=== PATIENT | male | born 1935 | race Caucasian/White ===

== ENCOUNTER 2016-09-19 20:04 | Emergency (ER) | payer MEDICARE, OTHER ==
[~2016-09-19] VITALS: Ht 193 cm; Wt 122.7 kg
[2016-09-19 20:06] VITALS: BP 176/78; PULSE 67; RESP 16; O2SAT 97
--- NOTE | 2016-09-19 20:32 | ED.REPORT ---
HPI-Trauma Minor / Fall Date of Service Sep 19, 2016 ED Provider: Xenia Ross MD Patient is a 81 year old male who presents to the ED after falling off a ladder. He complains of neck, left hip and left lumbar pain. Patient denies losing consciousness, headache, chest pain, numbness or weakness. The patient states that he fell about 4 feet and landed onto his back. He fell onto the lawn. The patient states that the pain in his hip is exacerbated when he tries to move it but he was able to ambulate after the accident. Patient currently takes 81mg of ASA daily. Nursing Notes Stated Complaint: FELL OFF LADDER- 6FT Chief Complaint: Multiple Trauma/Fall Nursing Notes Reviewed: Yes Allergies: Coded Allergies: ibuprofen (Verified Allergy, Severe, Anaphylaxis, 09/19/16) Scheduled Aspirin (Aspirin) 81 Mg Tablet 81 MG PO DAILY Ranitidine (Ranitidine) 150 Mg Capsule 150 MG PO DAILY Tamsulosin (Flomax) 0.4 Mg Capsule 0.4 MG PO DAILY Verapamil ER (Verapamil ER) 120 Mg Cap24h.pel 120 MG PO DAILY Scheduled PRN Oxycodone HCl/Acetaminophen 5-325 (Endocet 5-325) 1 Each Tablet 1-2 TABLET PO Q6H PRN PRN For Pain General Time Seen by MD: 20:25 Chief Complaint Fall Hx Obtained From: Patient Arrived By: Walk-in Onset Occurred: 1 - 4 hours ago Symptom Duration: Since onset Caused by: Fall from height... (3-6 feet) Location: Back Hip left Neck Quality: Painful Severity: Current: Pain level 4 out of 10 Similar Sx Previous: No Past Medical History Smoking History Unknown if Ever Smoker Social History Other Social History: Good social support Ambulatory Status Independent Review of Systems Constitutional: Denies: Chills, Fever Respiratory: Denies: Non-productive cough, Shortness of breath Musculoskeletal: Reports: Back pain, Extremity pain (left hip), Neck pain Skin: Denies Itching, Denies Rash Neurologic: Denies: Change LOC, Headache, Numbness, Problem walking, Weakness Complete sys rev & neg: except as marked. Physical Exam Initial Vital Signs Vital Signs (First) Date Time Temp Pulse Resp B/P Pulse Ox O2 Delivery O2 Flow Rate FiO2 09/19/16 20:06 36.8 67 16 176/78 97 Room Air Initial VS: Reviewed, Vital signs abnormal General/Constitutional: Awake, Alert Neck: Atraumatic, Supple, Full range of motion left lateral tenderness no central tenderness Head / Eyes: Atraumatic, Normocephalic, PERRL, EOMI Respiratory / Chest: Atraumatic, Breath sounds NL, Breath sounds = bilat, No respiratory distress Cardiovascular: Heart rate NL, Regular rhythm, Heart sounds NL Back: Atraumatic, Non-tender Upper Extremity / MS: No deformity, Neurologic intact, Vascular intact right lateral elbow bruising Lower Extremity / Pelvis / MS: Neurologic intact, Vascular intact Lower Ext Brief Normals: Hip R exam normal Left Hip: Positive: ROM reduced..., Negative: Leg shortened Skin: Atraumatic, Color NL, No rash, Warm, Dry Neurologic: Oriented X3, Speech NL, No motor deficits, No sensory deficits Psychiatric: Affect NL, Mood NL Interpretation & Diagnostics X-Ray Chest Interpretation Chest Xray Interpretation: no acute findings View: Portable, 1 view Interpretation / Wet Read by: Wet read ED physician X-Ray Interpretation Xray Interpretation: no evidence of fracture X-Ray Ordered: Hip left Interpretation / Wet Read by: Wet read ED physician Interpretation: Normal exam Xray Interpretation: no acute fracture Study Performed: LUMBAR SPINE Interpretation / Wet Read by: Wet read ED physician CT Head Interpretation IMPRESSION: Arachnoid cyst anterior left temporal fossa measures 2.3 x 4.1 cm, and no acute trauma is found. Dictated by: Prabhu Shen M.D. on 09/19/2016 at 21:00 Approved by: Prabhu Shen M.D. on 09/19/2016 at 21:02 Interpretation / Wet Read by: Interpret - Radiologist CT C-Spine Interpretation IMPRESSION: There is moderate to moderately severe degenerative disc disease along the cervical spine, without acute trauma identified. No traumatic subluxation is suspected. Dictated by: Prabhu Shen M.D. on 09/19/2016 at 21:02 Approved by: Prabhu Shen M.D. on 09/19/2016 at 21:04 Interpretation / Wet Read by: Interpret - Radiologist Re-Eval/Medical Decision Med Decision/Clinical Course The patient had a significant fall onto grass without loss of consciousness and he is not on any anticoagulation. His predominant complaint was left hip and pelvic pain. On exam he is not having any central spinal tenderness or signs of trauma to his head or back. He has some tenderness around the left iliac crest and he does have some neck discomfort with flexion only. He is neurologically intact. No fractures were found and the patient is able to bear weight on his left hip therefore a CT was not necessary. There are no signs of intracranial pathology related to the fall. The patient does not have any other complaints or findings on exam that are concerning for an acute surgical process. Re-Evaluation/Progress : Time of Eval: 23:00 Re-Evaluation/Progress Note: Discussed all results and plan for discharge. Patient understands and agrees to plan. All questions were addressed. Counseled Regarding: Diagnosis, Lab results, Need for follow-up, When/why to return to ED Discharge & Departure Impression: Primary Impression: Fall Encounter type: initial encounter Qualified Code: W19.XXXA - Unspecified fall, initial encounter Additional Impressions: Neck strain Encounter type: initial encounter Qualified Code: S16.1XXA - Strain of muscle, fascia and tendon at neck level, initial encounter Hip pain Laterality: left Qualified Code: M25.552 - Pain in left hip Disposition: Home Discharge Condition All VS Reviewed: Yes Condition: Stable Patient Instructions: Hip Pain (ED) Additional Instructions: Your CT scans and X-ray were normal and reassuring. There was no evidence of any fractures. You can also try icing your neck and back for 30minutes, 3 times a day. Activity as tolerated by your pain. Take 1-2 Percocet every 6 hours as needed for severe pain. Do not combine with alcohol or drive while taking the medication. Do not combine with acetaminophen. Be sure to add extra fiber to your diet as narcotics can cause constipation. Take the pain medications with food. Follow up with your primary care physician next week. Return to the emergency department if you develop any new or concerning symptoms Referrals: [facility] [employer] Attestation Portions of this note were transcribed by Mariana Gibbs. I, Dr. Ross personally performed the history, physical exam and medical decision-making; I reviewed and confirmed the accuracy of the information in the transcribed note. Signed by: Yvonne Willett, 09/19/16 copies to: [facility] Xenia Ross MD Sep 19, 2016 20:32 Faith Gibbs Sep 19, 2016 20:40
[2016-09-19] MEDS ORDERED: VERA120C2 PO (20:48)
[2016-09-19] MEDS ORDERED: TAMS0.4C98 PO (20:49)
[2016-09-19] MEDS ORDERED: ASPI-973 PO (20:50)
[2016-09-19] MEDS ORDERED: ASPI81TA3 PO (20:50)
[2016-09-19] MEDS ORDERED: RANI150C4 PO (20:52)
--- NOTE | 2016-09-19 21:04 | DRSVH ---
PROCEDURE: CT BRAIN WITHOUT CONTRAST ([id number]) INDICATIONS: fell 6ft hit head; c/o head & neck pain TECHNIQUE: Noncontrast 4.5 mm thick angled axial sections acquired from the foramen magnum to the vertex, with c oronal reformats. COMPARISON: None. FINDINGS: Image quality: Excellent. Moderate brain parenchymal atrophy. CSF spaces: Basal cisterns are patent. There is an arachnoid cyst at the anterior left temporal lucy a measuring up to 2.3 x 4.1 cm, water density.. The ventricles are symmetric in size and shape. Brain: No intracranial bleeds or masses. There is cerebral volume loss for age, with resultant vent ricular and sulcal prominence. There are periventricular and deep white matter chronic small vessel ischemic changes. There is intracranial internal carotid artery atherosclerosis. There is moderate b rain parenchymal atrophy, expected for age. Skull and face: Calvarium and visualized facial bones appear intact, without suspicious lesions. Sinuses: Visualized sinuses and mastoids are clear. IMPRESSION: Arachnoid cyst anterior left temporal fossa measures 2.3 x 4.1 cm, and no acute trauma i s found. Dictated by: Prabhu Shen M.D. on 09/19/2016 at 21:00 Approved by: Prabhu Shen M.D. on 09/19/2016 at 21:02
--- NOTE | 2016-09-19 21:06 | DRSVH ---
PROCEDURE: CT CERVICAL SPINE WITHOUT CONTRAST ([id number]) INDICATIONS: fell 6ft hit head; c/o head&neck pain TECHNIQUE: Noncontrast 3 mm thick sections acquired from the skull base to the T4 level. Sagittal and coronal r eformats were then constructed. For radiation dose reduction, the following was used: automated exp osure control, adjustment of mA and/or kV according to patient size. COMPARISON: None. FINDINGS: Image quality: Excellent. Bones: No fractures or dislocations. Visualized superior ribs are intact. Moderate to moderately s evere degenerative disc disease along the middle and lower thirds of the cervical spine but no acute trauma found. Soft tissues: Prevertebral soft tissues are normal in thickness. No paravertebral hematomas. No ap ical pneumothoraces. IMPRESSION: There is moderate to moderately severe degenerative disc disease along the cervical spin e, without acute trauma identified. No traumatic subluxation is suspected. Dictated by: Prabhu Shen M.D. on 09/19/2016 at 21:02 Approved by: Prabhu Shen M.D. on 09/19/2016 at 21:04
[2016-09-19] MEDS ORDERED: oxyCODONE-Acetamin 5-325 mg Tablet PO ONE (21:30)
[2016-09-19 22:18] VITALS: BP 163/70; PULSE 91; RESP 15; O2SAT 95
[2016-09-19] MEDS ORDERED: _Ondansetron ODT 4 mg Tablet PO PRN (23:05)
[2016-09-19] MEDS ORDERED: _oxyCODONE/APAP 5-325 mg Tablet PO PRN (23:05)
[2016-09-19] MEDS ORDERED: OXYC-407 PO (23:07)
[2016-09-19 23:09] VITALS: BP 152/66; PULSE 68; RESP 15; O2SAT 94
[2016-09-19 23:40] VITALS: BP 152/66; PULSE 68; RESP 15; O2SAT 94
--- NOTE | 2016-09-20 09:19 | DRSVH ---
PROCEDURE: X-RAY CHEST, TWO VIEWS ([id number]) INDICATIONS: fall TECHNIQUE: 2 views of the chest were acquired. COMPARISON: None. FINDINGS: Surgical changes and devices: None. Lungs and pleura: No pleural effusions or pneumothorax. Lungs are clear. Mediastinum: Right paratracheal soft tissue prominence noted. Heart size is normal. Bones and chest wall: No suspicious bony abnormalities. Soft tissues appear unremarkable. IMPRESSION: 1. Right paratracheal soft tissue prominence noted which may be related to senescent changes. Recomm end obtaining comparison with prior imaging if available and if not followup chest x-ray in 3 months is recommended or alternatively chest CT could be performed. Dictated by: Shilo PASTRANA Interpreted: Madelin Brito MD on 09/20/2016 at 8:36 Approved by: Madelin Brito M.D. on 09/20/2016 at 9:18
--- NOTE | 2016-09-20 09:19 | DRSVH ---
PROCEDURE: X-RAY LUMBAR SPINE, 2 OR 3 VIEW INDICATIONS: fall TECHNIQUE: 3 views of the lumbar spine were acquired. COMPARISON: None. FINDINGS: Bones: 5 [id number] vertebrae are present. There is normal bony alignment. No vertebral body c ompression fractures. No suspicious bony lesions. Multilevel disc degeneration and lower lumbar spi ne facet joint arthropathy. Soft tissues: There is dilated colon within the midabdomen. No suspicious soft tissue calcifications. Multiple calcifications projected over left kidney largest measuring 1.5 cm. Colonic stool present within the colon. IMPRESSION: 1. No displaced fracture seen. If there is continued pain, followup exam or additional imaging such as MRI or CT could be performed for further assessment. 2. Multilevel degenerative change. 3. Multiple calcifications projected over the left kidney. 4. Partially visualized, dilated loops of colon. If further characterization is warranted, acute abdo gonzález series may be helpful. Dictated by: Shilo PASTRANA Interpreted: Madelin Brito MD on 09/20/2016 at 8:33 Approved by: Madelin Brito M.D. on 09/20/2016 at 9:17
--- NOTE | 2016-09-20 09:19 | DRSVH ---
PROCEDURE: X-RAY PELVIS W/LAT HIP (LT) ([id number]) INDICATIONS: fall TECHNIQUE: AP pelvis with lateral view(s) of the left hip(s). COMPARISON: None. FINDINGS: Bones: No fractures or dislocations. Pelvic ring appears intact. No suspicious bony lesions. Mild joint narrowing with periarticular osteophyte formation of the hip joints.. Soft tissues: The visualized bowel gas pattern is normal. No suspicious soft tissue calcifications. IMPRESSION: No displaced fracture seen. If there is continued pain, followup exam or additional kayleen ging such as MRI or CT could be performed for further assessment. Dictated by: Shilo Slade RRA Interpreted: Madelin Brito MD on 09/20/2016 at 8:35 Approved by: Madelin Brito M.D. on 09/20/2016 at 9:17
== END 2016-09-19 23:40 | disposition home or self-care (01) ==
LOC: SED 20:04
DX: S16.1XXA Strain of muscle, fascia and tendon at neck level, initial encounter (principal); M25.552 Pain in left hip; W11.XXXA Fall on and from ladder, initial encounter; Y93.89 Activity, other specified; Y92.89 Other specified places as the place of occurrence of the external cause; Y99.8 Other external cause status; Z79.82 Long term (current) use of aspirin